=== PATIENT | female | born 1995 | race African-American/Black ===

== ENCOUNTER 2020-12-13 17:03 | Emergency (ER) | payer OTHER ==
[~2020-12-13] VITALS: Ht 165.1 cm; Wt 61.7 kg
[2020-12-13 17:10] VITALS: BP 132/67
--- NOTE | 2020-12-13 17:33 | NUR ---
25 YEAR OLD FEMALE COMPLAINS OF RIGHT SIDED GROIN PAIN X 3 DAYS. PT STATES THAT LAST TIME SHE HAD THIS PAIN IT WAS SIMILAR TO PREVIOUS TIME SHE HAD CYST IN THAT AREA. PT DENIES ANY CHANGE IN URINATION/DEFECATION, DENIES BLOOD. PT AOX4, BREATHING EVEN AND UNLABORED, SKIN WARM AND DRY. BED IN LOWEST POSITION, LOCKED, BED RAIL UPX1. PMH - DENIES ALLERGIES - NKA
[2020-12-13] MEDS ORDERED: KETOROLAC 30 MG/ML VIAL IVP ONE (18:10)
[2020-12-13 18:34] LABS: BASOPHILS % (AUTO) 0.5 % (0.0-2.0); EOSINOPHILS # (AUTO) 0.1 K/uL (0-0.4); EOSINOPHILS % (AUTO) 1.5 % (0.0-4.0); HEMATOCRIT 35.7 % (36-48); HEMOGLOBIN 12.2 g/dL (12.0-16.0); LYMPHOCYTES # (AUTO) 1.9 K/uL (2.5-16.5); LYMPHOCYTES % (AUTO) 23.1 % (20.5-51.1); MEAN CORPUSCULAR HEMOGLOBIN 29 pg (27-31); MEAN CORPUSCULAR HGB CONC 34 g/dL (33-37); MEAN CORPUSCULAR VOLUME 85.9 fL (80-94); MONOCYTES # (AUTO) 0.5 K/uL (0.8-1.0); MONOCYTES % (AUTO) 5.6 % (1.7-9.3); NEUTROPHILS # (AUTO) 5.7 K/uL (1.8-7.7); NEUTROPHILS % (AUTO) 69.3 % (42.2-75.2); PLATELET COUNT (AUTO) 271 K/uL (140-450); RED BLOOD CELL COUNT(AUTO) 4.16 MIL/uL (4.20-5.40); RED CELL DISTRIBUTION WIDTH 12.4 % (11.6-13.7); WHITE BLOOD COUNT (AUTO) 8.2 K/uL (4.8-10.8)
[2020-12-13 18:39] LABS: APPEARANCE,URINE CLOUDY (CLEAR); BILIRUBIN,URINE NEGATIVE (NEGATIVE); BLOOD, URINE NEGATIVE (NEGATIVE); COLOR,URINE YELLOW (YELLOW); LEUKOCYTE ESTERASE ,URINE NEGATIVE (NEGATIVE); NITRITE, URINE NEGATIVE (NEGATIVE); PH,URINE 8.5 (5.0-9.0); UGLUCOSE NEGATIVE (NEGATIVE)
[2020-12-13 18:53] LABS: ALBUMIN 3.6 g/dL (3.4-5.0); CARBON DIOXIDE 25.6 mmol/L (21-32); CREATININE 0.8 mg/dL (0.6-1.3); POTASSIUM 3.6 mmol/L (3.5-5.1); TOTAL BILIRUBIN 0.4 mg/dL (0.0-1.0)
[2020-12-13 19:02] LABS: RBC,URINE 0-5 /HPF (0-5); WBC,URINE 0-5 /HPF (0-5)
--- NOTE | 2020-12-13 19:07 | NUR ---
REPORT GIVEN TO AI HOOKER, TRANSFER OF CARE AT THIS TIME.
--- NOTE | 2020-12-13 19:32 | NUR ---
ERMD AT BEDSIDE REVIEWING US RESULTS.
--- NOTE | 2020-12-13 20:10 | NUR ---
PT TAKEN TO CT VIA W/C
--- NOTE | 2020-12-13 20:23 | NUR ---
PT RETURN FROM CT
--- NOTE | 2020-12-13 21:56 | NUR ---
IV removed, catheter intact and site benign. Applied folded 4x4 gauze and tape to stop bleeding.
[2020-12-13 22:00] VITALS: BP 124/64
--- NOTE | 2020-12-13 22:00 | NUR ---
Patient discharged with v/s stable. Written and verbal after care instructions given and explained. Patient verbalized understanding. Ambulatory with steady gait. All questions addressed prior to discharge. Advised to follow up with PMD.
== END 2020-12-13 22:00 | disposition home or self-care (01) ==
LOC: MED 17:03
DX: R10.31 Right lower quadrant pain (principal)
CPT/HCPCS: 36415; 74177; 76705; 76830; 80053; 81001; 81025; 85025; 93976; 96372; 99285; J1885; Q9967